=== PATIENT | male | born 1980 | race Hispanic/Latino ===

== ENCOUNTER 2017-07-04 19:15 | Emergency (ER) | payer OTHER ==
[2017-07-05] MEDS ORDERED: ACETAMINOPHEN ELIXIR 160 MG/5ML UDCUP ONE (02:41)
== END 2017-07-04 20:49 | disposition home or self-care (01) ==
LOC: EDH 19:15
DX: M54.5 Low back pain (principal); E11.9 Type 2 diabetes mellitus without complications; I10 Essential (primary) hypertension; Z72.0 Tobacco use
CPT/HCPCS: 99281